=== PATIENT | male | born 1945 | race Caucasian/White ===

== ENCOUNTER 2020-06-03 10:21 | Emergency (ER) | payer MEDICARE, BC ==
--- NOTE | 2020-06-03 11:43 | EDM.PDOC ---
ED HPI GENERAL MEDICAL PROBLEM - General Chief Complaint: Laceration Stated Complaint: CUT RIGHT HAND Time Seen by Provider: 06/03/20 10:45 Source of Information: Reports: Patient History Limitations: Reports: No Limitations - History of Present Illness INITIAL COMMENTS - FREE TEXT/NARRATIVE: Patient slipped on rocks, laceration to base of right thumb. Bleeding controlled, CMS+, tetanus UTD. Onset: Today Onset Date: 06/03/20 Onset Time: 05:00 Quality: Reports: Ache Severity: Mild Improves with: Reports: None Worsens with: Reports: None Associated Symptoms: Reports: No Other Symptoms ED ROS GENERAL - Review of Systems Review Of Systems: See Below Constitutional: Reports: No Symptoms HEENT: Reports: No Symptoms Respiratory: Reports: No Symptoms Cardiovascular: Reports: No Symptoms Musculoskeletal: Reports: No Symptoms Skin: Reports: Wound Neurological: Reports: No Symptoms Psychiatric: Reports: No Symptoms ED EXAM, SKIN/RASH Exam: See Below Exam Limited By: No Limitations General Appearance: Alert, No Apparent Distress Head: Atraumatic Respiratory/Chest: No Respiratory Distress Skin: Warm, Dry, Wound/Incision Location, Skin: Other (2 cm laceration) Course - Vital Signs Last Recorded V/S: Last Vital Signs Temp 98.1 F 06/03/20 10:41 Pulse 98 06/03/20 10:41 Resp 18 06/03/20 10:41 BP 126/87 06/03/20 10:41 Pulse Ox 98 06/03/20 10:41 Departure - Departure Time of Disposition: 11:42 Disposition: Home, Self-Care 01 Clinical Impression: Laceration - Discharge Information *PRESCRIPTION DRUG MONITORING PROGRAM REVIEWED*: No *COPY OF PRESCRIPTION DRUG MONITORING REPORT IN PATIENT KIMMY: No Instructions: Laceration Care, Adult, [id number] Referrals: PCP,None [Primary Care Provider] - Sepsis Event Note (ED) - Evaluation Sepsis Screening Result: No Definite Risk - Focused Exam Vital Signs: Vital Signs Temp Pulse Resp BP Pulse Ox 06/03/20 10:41 98.1 F 98 18 126/87 98
== END 2020-06-03 11:47 | disposition home or self-care (01) ==
LOC: LB.ED 10:21
DX: S61.011A Laceration without foreign body of right thumb without damage to nail, initial encounter (principal); W26.8XXA Contact with other sharp object(s), not elsewhere classified, initial encounter
CPT/HCPCS: 12001; 99282-25

== ENCOUNTER 2022-05-25 10:50 | Emergency (ER) | payer MEDICARE, BC ==
[2022-05-25] MEDS: Meclizine 12.5 MG Tab PO ONE ×2 (11:17→12:38)
[2022-05-25 11:59] LABS: ESTIMATED GFR 90 mL/min (>60)
[2022-05-25] MEDS ORDERED: Amoxicillin 500 MG Cap ONE (13:00)
== END 2022-05-25 13:27 | disposition home or self-care (01) ==
LOC: LB.ED 10:50
DX: R42 Dizziness and giddiness (principal); H66.93 Otitis media, unspecified, bilateral; E78.00 Pure hypercholesterolemia, unspecified; Z88.8 Allergy status to other drugs, medicaments and biological substances; Z79.899 Other long term (current) drug therapy
CPT/HCPCS: 36415; 70450; 80048; 81003; 84484; 85025; 93005; 93010; 99282; 99284; A9270